=== PATIENT | male | born 1990 | race Caucasian/White ===

== ENCOUNTER 2023-07-09 12:29 | Outpatient (AMB) | payer OTHER, SELFPAY ==
--- NOTE | 2023-07-09 12:40 | MHC.OFFWIV ---
Intake Vital Signs 07/09/23 12:41 Height 6 ft 4 in Weight 336 lb 4 oz BMI 40.9 BP 124/70 Blood Pressure Location Rt brachial Position Sitting Respiration 13 Pulse 80 Pulse Source Pulse Oximeter Temp 97.6 F Temp Source Temporal Artery Scan Pulse Oximetry (%) 96 Oxygen Delivery Method Room Air Intake Visit Reasons: congestion Intake Note: Patient states that he was diagnosed with RSV 6 weeks ago and he is now spitting up grrenish-yellow mucus and is concerned he may have pneumonia. Patient has been trying OTC medications to try to lessen the mucus and coughing but it hasn't been working. 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 Accompanied by: Self / Same As Patient Allergies Seasonal Allergies Allergy (Intermediate, Verified 07/09/23 13:11) congestion Medication List - Last Reconciled 07/09/23 by Pebbles Fuller, NATIONAL EXPANSION RECRUITER- albuterol sulfate 90 mcg/actuation inhalation cebkvzxgj-DG-orkqkudi-guaifen 1-08-320-200 mg (Tylenol Cold and Flu Severe) 2 tabs PO Q4-6H PRN risankizumab-rzaa (Skyrizi) mg subcut Do you need a note to return to daycare/school/sports/work: No HPI HPI Comments History of Present Illness Details Here today with complaints of a productive cough that has been present for the last couple of weeks. Associated symptoms include shortness of breath and greater yellow colored thick sputum. States that he was diagnosed with RSV about 7 weeks ago. He was treated with Augmentin for 7 days and given a ProAir inhaler. Reports that he only has asthma symptoms when he is sick. Reports he is use over 140 pumps of the ProAir since becoming ill. States that his oxygen levels can dip as low as 91 92% when he is having coughing jags but they rebound quickly when he uses the albuterol inhaler. Reports a rebound to 98 99%. In addition he is using Afrin nasal spray. He has been using this for about 7 weeks. He is having a bloody nose from the left nares on and off. Having lots of nasal congestion that he can not seem to get rid of. Not UTD on vaccines Today he denies fever, chills, chest pain. PFSH Social History Patient Tobacco Use Status: Never used Tobacco Review of Systems Const All systems reviewed & are unremarkable except as noted in HPI and below Physical Exam Vital Signs: Last Vital Signs Temp 97.6 F 07/09/23 12:41 Pulse 80 07/09/23 12:41 Resp 13 07/09/23 12:41 BP 124/70 07/09/23 12:41 Pulse Ox 96 07/09/23 12:41 Oxygen Delivery Method Room Air 07/09/23 12:41 BMI result Body Mass Index 40.9 Const Other: awake alert mildly ill appearing TM intact w/ effusions and injections bilat R nares w/ dried blood, mucoid d/c bilat, turbinates erythematous pharynx wnl RRR LS dim throughout, paroxysmal cough, mucoid tenacious sputum produced Assessment & Plan Assessment & Plan (1) Rhinitis medicamentosa: Code(s): J31.0 - Chronic rhinitis; T48.5X5A - Adverse effect of other fwjv-xuvkoz-obdo drugs, initial encounter Plan: Advised to stop the use of nasal decongestants immediately. Educated about rhinitis medicamentosa. The only nasal spray should be using his nasal saline should he think that he needs it otherwise nothing to be placed in the nose (2) Sinusitis: Code(s): J32.9 - Chronic sinusitis, unspecified Qualifiers: Sinusitis location: pansinusitis Chronicity: acute Recurrence: non-recurrent Qualified Code(s): J01.40 - Acute pansinusitis, unspecified Plan: Likely related to the overuse of Afrin. We will treat him with an antibiotic and once again advised him to stop using the Afrin or any nasal decongestants (3) Asthmatic bronchitis: Code(s): J45.909 - Unspecified asthma, uncomplicated Qualifiers: Asthma severity: mild Asthma persistence: intermittent Asthma complication type: with acute exacerbation Qualified Code(s): J45.21 - Mild intermittent asthma with (acute) exacerbation Plan: His lung sounds are diminished today and he has a paroxysmal cough. I have refilled his ProAir inhaler. I will treat him with a short course of prednisone. Reports that he has done quite well with Tessalon Perles in the past therefore I have sent this as well. Educated on reasons to seek additional care. This note is constructed using voice recognition software. While every effort has been made to ensure accuracy in radioisotope production operator, still errors may have been included Sometimes, these errors may affect the content or meaning of the given sentence . Total time spent caring for the patient today was 34 minutes. This includes time spent during the visit, and time spent after the visit on documentation Medications: New benzonatate 100 mg PO TID 10 days PRN 30 caps 1RF cough prednisone 50 mg PO DAILY 5 days 5 tabs 0RF cefixime 400 mg PO DAILY 7 days 7 caps 0RF albuterol sulfate 90 mcg/actuation 2 puffs inhalation Q4-6H 30 days PRN 8.5 grams 0RF shortness of breath or wheezing Coding Level of Care Code New Pt Level 3 (07426) Diagnoses Rhinitis medicamentosa J31.0; T48.5X5A Acute non-recurrent pansinusitis J01.40 Sinusitis location: pansinusitis Chronicity: acute Recurrence: non-recurrent Mild intermittent asthmatic bronchitis with acute exacerbation J45.21 Asthma severity: mild Asthma persistence: intermittent Asthma complication type: with acute exacerbation Time Spent (min) 34
[2023-07-09 12:41] VITALS: BP 124/70; PULSE 80; RESP 13; TEMP 36.4; O2SAT 96; BMI 40.9
== END 2023-07-09 13:28 | disposition home or self-care (01) ==
PROVIDERS: Visit Provider Nurse Practitioner Family
DX: J31.0 Chronic rhinitis (principal); T48.5X5A Adverse effect of other anti-common-cold drugs, initial encounter; J01.40 Acute pansinusitis, unspecified; J45.21 Mild intermittent asthma with (acute) exacerbation
CPT/HCPCS: 99203